=== PATIENT | female | born 1975 | race Caucasian/White ===

== ENCOUNTER 2019-06-30 12:41 | Emergency (ER) | payer BC ==
[2019-06-30 13:09] VITALS: BP 116/77
[2019-06-30] MEDS ORDERED: Albuterol HFA INHALER* 8 gm MDI INH ONE (13:16)
--- NOTE | 2019-06-30 13:20 | UC ---
General HPI - HPI Summary HPI Summary: States three days ago began with sore throat. Yesterday started with fever/ chills, bodyaches and chest congestion. Everything feels sore. Fulls chest fullness but can't really cough. No SOB. No N/V/D. No abdominal pain. Did get a flu shot. Smokes 5 cig/day - no hx of inhaler use in the past. Works as a home health aid. Meds: reviewed - History of Current Complaint Chief Complaint: UCRespiratory Stated Complaint: CHEST CONGESTION/CHILLS Time Seen by Provider: 06/30/19 13:01 Hx Last Menstrual Period: ~06/25/2019 Pain Intensity: 0 - Allergy/Home Medications Allergies/Adverse Reactions: Allergies Allergy/AdvReac Type Severity Reaction Status Date / Time Penicillins Allergy "My throat Verified 06/30/19 13:03 closes up." Home Medications: Home Medications Ibuprofen TAB* [Advil TAB*] 400 mg PO Q6H PRN 06/30/19 [History Confirmed ] Multivit-Min/Folic Acid/Biotin [Hair, Skin and Nails Caplet] 1 each PO DAILY 06/19 [History Confirmed 06/30/19] Vitamin THERAPEUTIC TAB* [Theragran TAB*] 1 tab PO DAILY 06/30/19 [History Confirmed 06/30/19] predniSONE 20 mg TAB [Deltasone 20 MG TAB*] 40 mg PO DAILY #8 tab 06/30/19 [Rx] PMH/Surg Hx/FS Hx/Imm Hx Previously Healthy: Yes - Surgical History Surgical History: Yes Surgery Procedure, Year, and Place: Left Hand Ganglion Cystectomy, 2013, [place] ; Right Hand Ganglion Cystectomy, 2011, [place]; and Tubal Ligation, 2003, [place]; , 1999, [place] - Family History Known Family History: Positive: None Negative: Hypertension, Diabetes, Respiratory Disease - Social History Alcohol Use: Rare Substance Use Type: None Smoking Status (MU): Light Every Day Tobacco Smoker Type: Cigarettes Amount Used/How Often: ~1/4 PPD Length of Time of Smoking/Using Tobacco: Since Age 16 Have You Smoked in the Last Year: Yes - Immunization History Most Recent Influenza Vaccination: Jan 2015 Most Recent Tetanus Shot: UTD Review of Systems All Other Systems Reviewed And Are Negative: Yes Constitutional: Positive: Fever, Chills ENT: Positive: Sore Throat, Ear Ache, Nasal Discharge Respiratory: Positive: Cough Physical Exam Triage Information Reviewed: Yes Appearance: Other: - mildly ill appearing Vital Signs: Initial Vital Signs Temp 98.8 F 06/30/19 12:59 Pulse 90 06/30/19 12:59 Resp 16 06/30/19 12:59 BP 116/77 06/30/19 12:59 Pulse Ox 100 06/30/19 12:59 ENT: Positive: Pharyngeal erythema, Nasal congestion, Tonsillar swelling, Other - left TM: erythematous, nonbulging right TM: dull Neck: Positive: Supple, Nontender Respiratory: Positive: Other: - b/l expiratory wheeze, faint worse on right Cardiovascular: Positive: RRR, No Murmur Course/Dx - Course Course Of Treatment: This is a 43 yr old with flu like s/s Rapid flu : negative Rapid strep : negative Albuterol inhaler given in UC to provide some relief - still wheezing on exam but improved aeration Plan Start Prednisone as prescribed Continue Albuterol inhaler with spacer 2 puffs every 4 hours while sick, then change to as needed Discontinue smoking Rest, fluids, tylenol and/or ibuprofen as needed for pain/fever - take as directed If symptoms persist or worsen, recommend follow up with PCP or return to urgent care - Diagnoses Provider Diagnosis: Viral syndrome, Reactive airway disease Discharge ED - Sign-Out/Discharge Documenting (check all that apply): Patient Departure All imaging exams completed and their final reports reviewed: No Studies - Discharge Plan Condition: Fair Disposition: HOME Prescriptions: predniSONE 20 mg TAB [Deltasone 20 MG TAB*] 40 mg PO DAILY #8 tab Patient Education Materials: Viral Syndrome (ED), Reactive Airways Disease (ED) Forms: *Work Release Referrals: No Primary Care Phys,NOPCP [Primary Care Provider] - [facility] [Outside] Additional Instructions: Start Prednisone as prescribed Continue Albuterol inhaler with spacer 2 puffs every 4 hours while sick, then change to as needed Discontinue smoking Rest, fluids, tylenol and/or ibuprofen as needed for pain/fever - take as directed If symptoms persist or worsen, recommend follow up with PCP or return to urgent care - Billing Disposition and Condition Condition: FAIR Disposition: Home
[2019-06-30 14:02] LABS: Influenza A Molecular Negative (Negative); Influenza B Molecular Negative (Negative)
== END 2019-06-30 14:10 | disposition home or self-care (01) ==
LOC: UCCORT 12:41
DX: J45.909 Unspecified asthma, uncomplicated (principal); B34.9 Viral infection, unspecified; Z88.0 Allergy status to penicillin; F17.210 Nicotine dependence, cigarettes, uncomplicated
CPT/HCPCS: 87651; 99203; A9270-GY; G0463